=== PATIENT | male | born 1960 ===

== ENCOUNTER 2021-04-21 06:00 | Outpatient (RCR) | payer OTHER, SELFPAY | END 2021-05-21 23:59 | disposition home or self-care (01) | LOC: MPT 06:00 | PROVIDERS: Referring Provider Urology; Visit Provider Urology | DX: N39.3 Stress incontinence (female) (male) (principal); Z85.46 Personal history of malignant neoplasm of prostate | CPT/HCPCS: 97110; 97140; 97161; 97530 ==

== ENCOUNTER 2021-05-22 06:00 | Outpatient (RCR) | payer OTHER, SELFPAY | END 2021-06-18 23:59 | disposition home or self-care (01) | LOC: MPT 06:00 | PROVIDERS: Referring Provider Urology; Visit Provider Urology | DX: N39.3 Stress incontinence (female) (male) (principal); Z85.46 Personal history of malignant neoplasm of prostate | CPT/HCPCS: 97110; 97530 ==

== ENCOUNTER 2021-07-20 06:00 | Outpatient (RCR) | payer OTHER, SELFPAY | END 2021-07-27 23:59 | disposition home or self-care (01) | LOC: MPT 06:00 | PROVIDERS: Referring Provider Urology; Visit Provider Urology | DX: N39.3 Stress incontinence (female) (male) (principal); Z85.46 Personal history of malignant neoplasm of prostate | CPT/HCPCS: 97110 ==